=== PATIENT | male | born 1980 | race African-American/Black ===

== ENCOUNTER 2019-11-02 21:48 | Emergency (ER) | payer SELFPAY ==
[~2019-11-02] VITALS: Ht 188 cm; Wt 105.0 kg
[2019-11-02] MEDS ORDERED: SODIUM CHLORIDE 0.9% 1,000 ML IV ONE (22:35)
[2019-11-02 23:22] LABS: BASOPHILS % 0.9 % (0.0-2.0); EOSINOPHILS % 2.4 % (0.0-5.0); HEMATOCRIT. 42.5 % (42.0-52.0); HEMOGLOBIN. 13.9 g/dL (14.0-18.0); LYMPHOCYTES % 30.6 % (20.0-50.0); MEAN CORPUSCULAR VOLUME 88.7 fL (80.0-94.0); MEAN PLATELET VOLUME 8.7 fl (7.4-10.4); MONOCYTES % 8.1 % (2.0-8.0); PLATELET 234 x1000/uL (130-400); RED BLOOD CELL COUNT 4.79 mill/uL (4.7-6.1); RED CELL DISTRIBUTION WIDTH 13.8 % (11.6-14.6)
[2019-11-02 23:29] LABS: CHLORIDE 107 mEq/L (98-107)
[2019-11-02 23:32] LABS: ETHANOL BLOOD < 10 mg/dL
[2019-11-03 02:47] VITALS: BP 116/78
== END 2019-11-03 02:48 | disposition home or self-care (01) ==
LOC: ER 21:48
DX: R55 Syncope and collapse (principal)
CPT/HCPCS: 36415; 70450; 80048; 80320; 85025; 93005; 96360; 96361; 99285; J7030; G0480